=== PATIENT | female | born 1950 | race Caucasian/White ===

== ENCOUNTER 2019-02-03 10:37 | Day surgery (SDC) | payer MEDICARE ==
--- NOTE | 2019-02-03 07:22 | History and Physical - [place] ---
CHIEF COMPLAINT/HISTORY OF CHIEF COMPLAINT: This patient presents with a history of intractable radiculopathy and a spinal infusion system which is currently infusing Hydromorphone. At the last refill battery depletion was identified, she is here for battery replacement on an outpatient basis. PAST MEDICAL HISTORY: Hypertension, hypothyroidism, cardiac arrhythmia, cancer identified as multiple neuroendocrine endoplasia. PAST SURGICAL HISTORY: Thyroid surgery, breast surgery, colon resection, appendectomy, corneal transplant, and elbow surgery. MEDICATIONS ON ADMISSION: List to be provided. FAMILY/PSYCHOSOCIAL HISTORY: Social history - Caffeine. Family history - Thyroid disease, diabetes, coronary artery disease, hypertension, and cancer. SYSTEMS REVIEW: The patient seems appropriate in no acute distress. The remainder of the systems review is as above. PHYSICAL EXAMINATION: Height is 5'8", weight is 250 pounds. No vital signs. HEENT: Within normal limits. LUNGS: Clear. HEART: Rapid. ABDOMEN: Nontender. MUSCULOSKELETAL: Examination of the musculoskeletal system shows the incision approximating the mid low lumbar spine for the catheter. The pump pouch at the left posterior gluteal margin identified and all incision are intact. Underlying pain pattern is cervical, thoracic and lumbar. Primary pain lumbar radiculopathy across the left leg front and back surface. There are some mild motor and sensory abnormalities. NEUROLOGIC: Cranial nerves are intact. IMPRESSION: 1. INTRACTABLE CERVICAL, THORACIC AND LUMBAR RADICULOPATHY, ICD-10 CODE M54.12, M54.14 AND M54.16. 2. IMPLANTED SPINAL OPIOID INFUSION SYSTEM USING HYDROMORPHONE, BATTERY DEPLETION. PLAN: The patient is here for battery replacement without program changes. The procedure will be considered outpatient although an overnight stay will be evaluated. JOB NUMBER: [id number] [facility]
[~2019-02-03 10:37] MED LIST: ACETAMINOPHEN 1,000 MG/100 ML BTL IVPB ONE; CEFAZOLIN 1G VIAL IVP ONE; FAMOTIDINE 20MG TABLET PO ONE; MECLIZINE 25 MG TABLET PO ONE; METOCLOPRAMIDE 10 MG TABLET PO ONE; MORPHINE SULFATE 0.4 GM in 0.9 % SODIUM CHLORIDE 100ML 40 ML IV ONE; MORPHINE SULFATE/PF 0.05 MG in 0.9 % SODIUM CHLORIDE 10ML VIA 0.95 ML IV ONE; VANCOMYCIN HCL 1,000 MG in DEXTROSE 5 % IN WATER 250 ML IVPB ONE; WATER STERILE FOR INJECTION 20 ML VIAL MC ONE
[2019-02-03] MEDS ORDERED: FENTANYL PF 100MCG/2ML VIAL IV ONE (10:38)
[2019-02-03] MEDS ORDERED: MIDAZOLAM HCL 2MG/2ML VIAL IV ONE (10:38)
[2019-02-03] MEDS ORDERED: LIDOCAINE 2% MDV (20MG/ML) 20ML VIAL IV ONE (10:38)
[2019-02-03] MEDS ORDERED: PROPOFOL 10 MG/ML VIAL IV ONE (10:38)
[2019-02-03] MEDS ORDERED: 0.9 % SODIUM CHLORIDE 1000ML 1,000 ML IV ONE (11:25)
[2019-02-03] MEDS ORDERED: LIDOCAINE 1% W/EPI 1:200,000 MPF 30ML SQ ONE ×2 (12:58)
[2019-02-03] MEDS ORDERED: BUPIVACAINE 0.5% W/EPI MPF 30 ML VIAL SQ ONE ×2 (12:59)
[2019-02-03] MEDS ORDERED: CEFAZOLIN 0.5 G in 0.9 % SODIUM CHLORIDE 1000ML 500 ML IVP ONE (13:01)
--- NOTE | 2019-02-05 10:51 | Operative Note ---
DATE OF SURGERY: 02/03/2019 PREOPERATIVE DIAGNOSIS: 1. Intractable lumbar radiculopathy, ICD10 code M54.16 and M54.17. 2. Implanted spinal infusion system morphine with battery depletion. OPERATION: Incision, subcutaneous dissection, removal and replacement of programmable pump at left posterior gluteal margin. SURGEON: Sunil Amaya DO ANESTHESIA: Local with sedation. ANESTHESIA PROVIDER: Anirudh Salter INDICATION: This patient presents with a history of intractable lumbar radiculopathy. A spinal infusion system infusing morphine has been in place for roughly 12 years. After a number of alarms have been identified with refills, she presents today for batter replacement. We will not change any of the parameters. PROCEDURE: Intravenous line, vital signs monitoring, IV sedation. Prepped and draped in sterile technique. Under imaging, a back table prime was performed. The patient was positioned prone. Sterile prep, sterile technique at the left posterior gluteal margin pump pouch site. Skin infiltrated with local. Incision made and subcutaneous dissection was conducted to the Dacron sleeve which was open. The pump exteriorized and from the indwelling catheter. A new pump prefilled morphine at 10 mg/mL was placed onto the field, interfaced with the indwelling catheter, secured to the fascia of the pouch with a nonabsorbable suture using a single pump eyelet. The incision was then closed using Stratafix suture, 2-0 fascia, 3-0 skin, Dermabond closure. Pump programmed back to original parameters delivering morphine at 2.5 mg a day. Alarm has been reset. Transported to the recovery room stable. No side effects from the procedure or sedation. Dermabond dressing in place. DISCHARGE INSTRUCTIONS: 1. The sites to remain clean and dry. Although the Dermabond will allow showering, she should not sit in water. Should the Dermabond coil or curl at the edge, she can trim it but not pull off the Dermabond itself. Should the Dermabond come loose, she is to contact the clinic. 2. Standard medications resumed including the antibiotic Levaquin 500 mg once a day for 14 days. 3. The office will contact the patient over the next several days to set up a time next week, 5-7 days, to evaluate the incisional site. Until then, she is to keep her activities controlled. All other instructions were provided with numbers to contact if problems given. Spinal opioid side effects including respiratory depression, nausea, vomiting, constipation, urinary retention, lightheadedness, rash have all been discussed and reviewed. Anything unusual, she is to contact the clinic or go to the local emergency room. [facility]
== END 2019-02-03 14:30 | disposition home or self-care (01) ==
LOC: SUR 10:37
PROVIDERS: ATTEND Pain Medicine Interventional Pain Medicine
DX: M54.16 Radiculopathy, lumbar region (principal); M54.17 Radiculopathy, lumbosacral region; I10 Essential (primary) hypertension; E11.9 Type 2 diabetes mellitus without complications; Z79.4 Long term (current) use of insulin; J44.9 Chronic obstructive pulmonary disease, unspecified; K21.9 Gastro-esophageal reflux disease without esophagitis; G89.29 Other chronic pain; E03.9 Hypothyroidism, unspecified
CPT/HCPCS: 62362; 00300; 62368; Q9967; J3370; J3010; C1776; J0690; J7030; J7060